=== PATIENT | male | born 1975 | race Caucasian/White ===

== ENCOUNTER 2022-07-27 05:57 | Inpatient (IN) | payer OTHER ==
[~2022-07-27] VITALS: Ht 180.3 cm; Wt 100.0 kg
[2022-07-27] MEDS ORDERED: HTN MED PO (06:30)
[2022-07-27] MEDS ORDERED: SODIUM CHLORIDE 0.9% 1,000 ML IV ONE ×2 (06:45→13:00)
[2022-07-27 07:01] LABS: BASOPHILS % (AUTO) 0.9 % (0.0-2.0); EOSINOPHILS % (AUTO) 3.3 % (1.0-6.0); HEMATOCRIT 42.6 % (41-53); HEMOGLOBIN 14.3 g/dL (13.5-17.5); LYMPHOCYTES # (AUTO) 2.5 K/uL (1.0-4.8); LYMPHOCYTES % (AUTO) 23.8 % (22.0-44.0); MEAN CORPUSCULAR HEMOGLOBIN 28.8 pg (26.0-34.0); MEAN CORPUSCULAR HGB CONC 33.5 G/dL (31.0-37.0); MEAN CORPUSCULAR VOLUME 86 fL (80-100); MONOCYTES # (AUTO) 0.7 K/uL (0.1-1.0); MONOCYTES % (AUTO) 6.9 % (2.0-9.0); NEUTROPHILS # (AUTO) 6.9 K/uL (1.8-7.7); NEUTROPHILS % (AUTO) 65.1 % (40.0-70.0); PLATELET COUNT (AUTO) 448 K/uL (150-450); RED BLOOD CELL COUNT(AUTO) 4.96 MIL/uL (4.50-5.90); RED CELL DISTRIBUTION WIDTH 14.5 % (11.5-14.5)
[2022-07-27 07:11] LABS: ANION GAP 9 mmol/L (8-16); CARBON DIOXIDE 26 mmol/L (22-29); CHLORIDE 103 mmol/L (98-107); CREATININE 0.92 mg/dL (0.60-1.30); GLOMERULAR FILTR. RATE CALC > 60 mL/min (>60); GLUCOSE,RANDOM 134 mg/dL (70-110); POTASSIUM 3.6 mmol/L (3.5-5.1); SODIUM SERUM 138 mmol/L (136-145)
[2022-07-27 07:17] LABS: ALANINE AMINOTRANSFERASE 20 U/L (12-78); ALBUMIN 3.8 g/dL (3.4-5.0); ALKALINE PHOSPHATASE 97 U/L (46-116); ASPARTATE AMINOTRANSFERASE 15 U/L (15-37); BILIRUBIN,TOTAL 0.3 mg/dL (0.1-1.0); TOTAL PROTEIN, SERUM 7.7 g/dL (6.4-8.2)
[2022-07-27] MEDS ORDERED: LORazepam 2 MG/ML VIAL IVP PRN (13:00)
[2022-07-27] MEDS ORDERED: LOPERAMIDE HCL 2 MG CAPSULE PO PRN (13:00)
[2022-07-27] MEDS: AmLODIPine BESYLATE 5 MG TABLET PO SCH (13:10)
[2022-07-27 19:34] LABS: AMPHET/METH SCREEN,URINE POSITIVE (NEGATIVE); BARBITURATE SCREEN, URINE NEGATIVE (NEGATIVE); BENZODIAZEPINES SCREEN,URINE NEGATIVE (NEGATIVE); CANNABINOID SCREEN,URINE POSITIVE (NEGATIVE); COCAINE SCREEN,URINE NEGATIVE (NEGATIVE); METHADONE SCREEN, URINE NEGATIVE (NEGATIVE); OPIATE SCREEN,URINE NEGATIVE (NEGATIVE); PHENCYCLIDINE SCREEN,URINE NEGATIVE (NEGATIVE)
[2022-07-27] MEDS: TEMAZEPAM 15 MG CAPSULE PO SCH (21:06)
[2022-07-27] MEDS: ACETAMINOPHEN/CODEINE 300-15 MG TABLET PO PRN (21:27)
[2022-07-27] MEDS: DICYCLOMINE HCL 10 MG CAPSULE PO PRN (21:28)
[2022-07-27] MEDS: METOCLOPRAMIDE HCL 5 MG/ML 2 ML VIAL IVP PRN (21:29)
[2022-07-28] MEDS ORDERED: AmLODIPine BESYLATE 10 MG TABLET PO ONE (00:30)
[2022-07-28] MEDS ORDERED: ENALAPRILAT DIHYDRATE 2.5 MG/2 ML VIAL IVP PRN ×2 (00:30→05:45)
[2022-07-28] MEDS: ACETAMINOPHEN/CODEINE 300-15 MG TABLET PO PRN ×2 (05:46→22:16)
[2022-07-28] MEDS: CloNIDine HCL 0.1 MG TABLET PO PRN ×2 (06:43→20:25)
[2022-07-28] MEDS: AmLODIPine BESYLATE 5 MG TABLET PO SCH (08:28)
[2022-07-28] MEDS: DICYCLOMINE HCL 10 MG CAPSULE PO PRN ×3 (08:40→16:39)
[2022-07-28 10:12] VITALS: BP 149/84
[2022-07-28 12:11] LABS: ANION GAP 14 mmol/L (8-16); BASOPHILS % (AUTO) 0.3 % (0.0-2.0); CALCIUM, TOTAL 9.9 mg/dL (8.8-10.5); CARBON DIOXIDE 26 mmol/L (22-29); CHLORIDE 99 mmol/L (98-107); CREATININE 1.02 mg/dL (0.60-1.30); EOSINOPHILS % (AUTO) 0.1 % (1.0-6.0); GLOMERULAR FILTR. RATE CALC > 60 mL/min (>60); GLUCOSE,RANDOM 149 mg/dL (70-110); HEMATOCRIT 47.3 % (41-53); HEMOGLOBIN 15.9 g/dL (13.5-17.5); LYMPHOCYTES # (AUTO) 1.7 K/uL (1.0-4.8); LYMPHOCYTES % (AUTO) 13.8 % (22.0-44.0); MEAN CORPUSCULAR HEMOGLOBIN 28.4 pg (26.0-34.0); MEAN CORPUSCULAR HGB CONC 33.6 G/dL (31.0-37.0); MEAN CORPUSCULAR VOLUME 84 fL (80-100); MONOCYTES # (AUTO) 0.6 K/uL (0.1-1.0); MONOCYTES % (AUTO) 5.2 % (2.0-9.0); NEUTROPHILS # (AUTO) 9.9 K/uL (1.8-7.7); NEUTROPHILS % (AUTO) 80.6 % (40.0-70.0); PLATELET COUNT (AUTO) 523 K/uL (150-450); POTASSIUM 3.6 mmol/L (3.5-5.1); RED CELL DISTRIBUTION WIDTH 14.4 % (11.5-14.5); SODIUM SERUM 139 mmol/L (136-145)
[2022-07-28 12:13] LABS: HEMOGLOBIN A1C 6.7 % (3.8-5.6)
[2022-07-28] MEDS: METOCLOPRAMIDE HCL 5 MG/ML 2 ML VIAL IVP PRN ×2 (13:56→20:03)
[2022-07-28 20:00] VITALS: BP 192/96
[2022-07-28 20:10] VITALS: BP 192/87
[2022-07-28] MEDS: TEMAZEPAM 15 MG CAPSULE PO SCH (20:25)
[2022-07-28 21:00] VITALS: BP 179/90
[2022-07-28] MEDS ORDERED: AmLODIPine BESYLATE 5 MG TABLET PO ONE (22:00)
[2022-07-29] MEDS: METOCLOPRAMIDE HCL 5 MG/ML 2 ML VIAL IVP PRN ×2 (03:44→20:15)
[2022-07-29] MEDS: DICYCLOMINE HCL 10 MG CAPSULE PO PRN ×2 (03:45→20:14)
[2022-07-29] MEDS: CloNIDine HCL 0.1 MG TABLET PO PRN ×2 (03:54→08:33)
[2022-07-29 03:58] VITALS: BP_SYST 170; BP_SYST 171; BP_DIAS 109
[2022-07-29 04:18] VITALS: BP 171/104
[2022-07-29 05:52] VITALS: BP 147/89
[2022-07-29 07:49] VITALS: BP 156/95
[2022-07-29] MEDS: AmLODIPine BESYLATE 5 MG TABLET PO SCH (08:33)
[2022-07-29 14:44] LABS: BASOPHILS % (AUTO) 0.4 % (0.0-2.0); EOSINOPHILS % (AUTO) 0.5 % (1.0-6.0); HEMATOCRIT 44.3 % (41-53); HEMOGLOBIN 14.8 g/dL (13.5-17.5); LYMPHOCYTES # (AUTO) 3.2 K/uL (1.0-4.8); LYMPHOCYTES % (AUTO) 20.3 % (22.0-44.0); MEAN CORPUSCULAR HEMOGLOBIN 28.3 pg (26.0-34.0); MEAN CORPUSCULAR HGB CONC 33.3 G/dL (31.0-37.0); MEAN CORPUSCULAR VOLUME 85 fL (80-100); MONOCYTES # (AUTO) 1.8 K/uL (0.1-1.0); MONOCYTES % (AUTO) 11.1 % (2.0-9.0); NEUTROPHILS # (AUTO) 10.7 K/uL (1.8-7.7); NEUTROPHILS % (AUTO) 67.7 % (40.0-70.0); PLATELET COUNT (AUTO) 490 K/uL (150-450); RED BLOOD CELL COUNT(AUTO) 5.22 MIL/uL (4.50-5.90); RED CELL DISTRIBUTION WIDTH 14.7 % (11.5-14.5)
[2022-07-29 14:53] LABS: CALCIUM, TOTAL 9.4 mg/dL (8.8-10.5); CREATININE 1.28 mg/dL (0.60-1.30); POTASSIUM 3.1 mmol/L (3.5-5.1)
[2022-07-29 14:59] LABS: ALBUMIN 3.9 g/dL (3.4-5.0); BILIRUBIN,TOTAL 0.4 mg/dL (0.1-1.0); TOTAL PROTEIN, SERUM 7.9 g/dL (6.4-8.2)
[2022-07-29] MEDS: CloNIDine HCL 0.1 MG TABLET PO SCH (16:36)
[2022-07-29 20:04] VITALS: BP 120/73
[2022-07-29] MEDS: TEMAZEPAM 15 MG CAPSULE PO SCH (20:09)
[2022-07-30] MEDS: CloNIDine HCL 0.1 MG TABLET PO SCH ×4 (00:26→23:50)
[2022-07-30 04:51] VITALS: BP 145/79
[2022-07-30 08:02] VITALS: BP 154/87
[2022-07-30] MEDS: AmLODIPine BESYLATE 5 MG TABLET PO SCH (08:28)
[2022-07-30] MEDS: METOCLOPRAMIDE HCL 5 MG/ML 2 ML VIAL IVP PRN ×3 (08:35→23:53)
[2022-07-30 10:09] LABS: BASOPHILS % (AUTO) 0.7 % (0.0-2.0); EOSINOPHILS % (AUTO) 0.2 % (1.0-6.0); HEMATOCRIT 44.6 % (41-53); HEMOGLOBIN 14.9 g/dL (13.5-17.5); LYMPHOCYTES # (AUTO) 2.4 K/uL (1.0-4.8); LYMPHOCYTES % (AUTO) 14.8 % (22.0-44.0); MEAN CORPUSCULAR HEMOGLOBIN 28.5 pg (26.0-34.0); MEAN CORPUSCULAR HGB CONC 33.5 G/dL (31.0-37.0); MEAN CORPUSCULAR VOLUME 85 fL (80-100); MONOCYTES # (AUTO) 1.4 K/uL (0.1-1.0); MONOCYTES % (AUTO) 8.8 % (2.0-9.0); NEUTROPHILS # (AUTO) 12.3 K/uL (1.8-7.7); NEUTROPHILS % (AUTO) 75.5 % (40.0-70.0); PLATELET COUNT (AUTO) 462 K/uL (150-450); RED BLOOD CELL COUNT(AUTO) 5.25 MIL/uL (4.50-5.90)
[2022-07-30 10:14] LABS: ANION GAP 11 mmol/L (8-16); CARBON DIOXIDE 26 mmol/L (22-29); CHLORIDE 99 mmol/L (98-107); CREATININE 1.09 mg/dL (0.60-1.30); GLOMERULAR FILTR. RATE CALC > 60 mL/min (>60); GLUCOSE,RANDOM 193 mg/dL (70-110); POTASSIUM 3.1 mmol/L (3.5-5.1); SODIUM SERUM 136 mmol/L (136-145)
[2022-07-30 10:21] LABS: ALANINE AMINOTRANSFERASE 19 U/L (12-78); ALBUMIN 3.6 g/dL (3.4-5.0); ALKALINE PHOSPHATASE 92 U/L (46-116); ASPARTATE AMINOTRANSFERASE 12 U/L (15-37); BILIRUBIN,TOTAL 0.3 mg/dL (0.1-1.0); TOTAL PROTEIN, SERUM 7.6 g/dL (6.4-8.2)
[2022-07-30] MEDS ORDERED: POTASSIUM CHLORIDE 20 MEQ ER TABLET PO ONE (10:45)
[2022-07-30] MEDS ORDERED: CloNIDine 0.3 MG/24 HOUR PATCH TD ONE (11:00)
[2022-07-30] MEDS ORDERED: DEXTROSE 50%-WATER 25 GM/50 ML SYRINGE IVP PRN (11:00)
[2022-07-30 13:19] LABS: APPEARANCE,URINE CLEAR (CLEAR); BILIRUBIN,URINE NEGATIVE (NEGATIVE); GLUCOSE, URINE (UA) 70-100 mg/dL (NEGATIVE); KETONES,URINE NEGATIVE (NEGATIVE); LEUKOCYTE ESTERASE ,URINE NEGATIVE (NEGATIVE); NITRATE,URINE NEGATIVE (NEGATIVE); OCCULT BLOOD,URINE NEGATIVE (NEGATIVE); PROTEIN,URINE TRACE mg/dL (NEGATIVE); UROBILINOGEN,URINE <=1.0 mg/dL (<=1.0)
[2022-07-30 13:24] LABS: BACTERIA,URINE None Seen /HPF (None Seen); RBC,URINE None Seen /HPF (0-2); SQUAMOUS EPITHELIAL CELL,UR Few /LPF (None Seen); WBC,URINE None Seen /HPF (0-5)
[2022-07-30] MEDS ORDERED: IOHEXOL 350 MG/ML 100 ML VIAL ONE (15:44)
[2022-07-30] MEDS ORDERED: SODIUM CHLORIDE 0.9% 100 ML ONE (15:44)
[2022-07-30 17:46] LABS: GLUCOMETER DEV NAME(LOC) 6S.2; GLUCOSE,POINT OF CARE 119 MG/DL (70-110)
[2022-07-30] MEDS: INSULIN LISPRO 100 UNITS/ML SQ PRN ×2 (18:48→20:23)
[2022-07-30 19:54] VITALS: BP 147/77
[2022-07-30] MEDS: TEMAZEPAM 15 MG CAPSULE PO SCH (20:20)
[2022-07-31 04:44] VITALS: BP 134/86
[2022-07-31 05:46] LABS: GLUCOMETER DEV NAME(LOC) 6S.2; GLUCOSE,POINT OF CARE 155 MG/DL (70-110)
[2022-07-31 05:46] LABS: GLUCOMETER DEV NAME(LOC) 6S.2; GLUCOSE,POINT OF CARE 255 MG/DL (70-110)
[2022-07-31] MEDS: INSULIN LISPRO 100 UNITS/ML SQ PRN ×3 (05:46→20:18)
[2022-07-31 07:33] VITALS: BP 156/89
[2022-07-31] MEDS: CloNIDine HCL 0.1 MG TABLET PO SCH (08:11)
[2022-07-31] MEDS: AmLODIPine BESYLATE 5 MG TABLET PO SCH (08:12)
[2022-07-31] MEDS: METOCLOPRAMIDE HCL 5 MG/ML 2 ML VIAL IVP PRN (08:14)
[2022-07-31 11:26] LABS: GLUCOMETER DEV NAME(LOC) 4E.2; GLUCOSE,POINT OF CARE 141 MG/DL (70-110)
[2022-07-31] MEDS ORDERED: NIFEdipine 30 MG ER TABLET PO ONE (12:00)
[2022-07-31] MEDS: SODIUM CHLORIDE 0.45% 1,000 ML IV SCH (12:34)
[2022-07-31] MEDS: HydrOXYzine HCL 50 MG TABLET PO PRN ×2 (12:34→18:22)
[2022-07-31 12:42] LABS: BASOPHILS % (AUTO) 1.2 % (0.0-2.0); EOSINOPHILS % (AUTO) 1.3 % (1.0-6.0); HEMATOCRIT 42.6 % (41-53); LYMPHOCYTES # (AUTO) 3.1 K/uL (1.0-4.8); LYMPHOCYTES % (AUTO) 26.4 % (22.0-44.0); MEAN CORPUSCULAR HEMOGLOBIN 28.3 pg (26.0-34.0); MEAN CORPUSCULAR HGB CONC 32.8 G/dL (31.0-37.0); MEAN CORPUSCULAR VOLUME 86 fL (80-100); MONOCYTES # (AUTO) 1.2 K/uL (0.1-1.0); MONOCYTES % (AUTO) 10.1 % (2.0-9.0); NEUTROPHILS # (AUTO) 7.2 K/uL (1.8-7.7); PLATELET COUNT (AUTO) 401 K/uL (150-450); RED BLOOD CELL COUNT(AUTO) 4.95 MIL/uL (4.50-5.90); RED CELL DISTRIBUTION WIDTH 15.2 % (11.5-14.5)
[2022-07-31 12:49] LABS: ANION GAP 7 mmol/L (8-16); CALCIUM, TOTAL 8.6 mg/dL (8.8-10.5); CARBON DIOXIDE 27 mmol/L (22-29); CHLORIDE 104 mmol/L (98-107); CREATININE 1.01 mg/dL (0.60-1.30); GLOMERULAR FILTR. RATE CALC > 60 mL/min (>60); GLUCOSE,RANDOM 152 mg/dL (70-110); POTASSIUM 3.8 mmol/L (3.5-5.1); SODIUM SERUM 138 mmol/L (136-145)
[2022-07-31 12:55] LABS: ALBUMIN 3.3 g/dL (3.4-5.0); ALKALINE PHOSPHATASE 93 U/L (46-116); ASPARTATE AMINOTRANSFERASE 13 U/L (15-37); BILIRUBIN,TOTAL 0.3 mg/dL (0.1-1.0); TOTAL PROTEIN, SERUM 6.9 g/dL (6.4-8.2)
[2022-07-31 12:59] LABS: ALANINE AMINOTRANSFERASE 4 U/L (12-78)
[2022-07-31 16:23] VITALS: BP 144/87
[2022-07-31] MEDS: ONDANSETRON HCL 4 MG/2 ML VIAL IVP PRN ×2 (16:26→21:08)
[2022-07-31 19:38] VITALS: BP 100/63
[2022-07-31 20:06] LABS: GLUCOMETER DEV NAME(LOC) 6S.1B; GLUCOSE,POINT OF CARE 116 MG/DL (70-110)
[2022-07-31 20:06] LABS: GLUCOMETER DEV NAME(LOC) 6S.1B; GLUCOSE,POINT OF CARE 112 MG/DL (70-110)
[2022-07-31 20:06] LABS: GLUCOMETER DEV NAME(LOC) 6N.1; GLUCOSE,POINT OF CARE 160 MG/DL (70-110)
[2022-07-31] MEDS: PANTOPRAZOLE SODIUM 40 MG DR TABLET PO SCH (20:14)
[2022-07-31] MEDS: TEMAZEPAM 15 MG CAPSULE PO SCH (20:14)
[2022-08-01] MEDS: SODIUM CHLORIDE 0.45% 1,000 ML IV SCH ×2 (01:13→14:40)
[2022-08-01] MEDS: ONDANSETRON HCL 4 MG/2 ML VIAL IVP PRN ×3 (01:17→11:21)
[2022-08-01] MEDS: HydrOXYzine HCL 50 MG TABLET PO PRN ×3 (03:07→22:05)
[2022-08-01 04:40] VITALS: BP 167/96
[2022-08-01 05:01] LABS: GLUCOMETER DEV NAME(LOC) 6S.2; GLUCOSE,POINT OF CARE 213 MG/DL (70-110)
[2022-08-01] MEDS: CloNIDine HCL 0.1 MG TABLET PO PRN ×2 (05:23→22:05)
[2022-08-01] MEDS: ACETAMINOPHEN/CODEINE 300-15 MG TABLET PO PRN ×2 (05:23→11:21)
[2022-08-01 07:32] LABS: GLUCOMETER DEV NAME(LOC) 6N.1; GLUCOSE,POINT OF CARE 119 MG/DL (70-110)
[2022-08-01 07:50] VITALS: BP 156/88
[2022-08-01] MEDS ORDERED: NIFEdipine 30 MG ER TABLET PO SCH (09:00)
[2022-08-01] MEDS: PANTOPRAZOLE SODIUM 40 MG DR TABLET PO SCH ×2 (09:57→20:33)
[2022-08-01 13:07] LABS: GLUCOMETER DEV NAME(LOC) 6N.1; GLUCOSE,POINT OF CARE 121 MG/DL (70-110)
[2022-08-01 16:29] VITALS: BP 142/81
[2022-08-01 19:45] VITALS: BP 133/65
[2022-08-01] MEDS: TEMAZEPAM 15 MG CAPSULE PO SCH (20:32)
[2022-08-01] MEDS: INSULIN LISPRO 100 UNITS/ML SQ PRN (20:44)
[2022-08-01 21:16] LABS: GLUCOMETER DEV NAME(LOC) 6S.2; GLUCOSE,POINT OF CARE 93 MG/DL (70-110)
[2022-08-01 21:16] LABS: GLUCOMETER DEV NAME(LOC) 6S.2; GLUCOSE,POINT OF CARE 180 MG/DL (70-110)
[2022-08-02 05:36] VITALS: BP 147/76
[2022-08-02] MEDS: PANTOPRAZOLE SODIUM 40 MG DR TABLET PO SCH (07:51)
[2022-08-02] MEDS ORDERED: MetFORMIN HCL 500 MG ER TABLET PO SCH (08:00)
[2022-08-02 08:22] VITALS: BP 175/88
[2022-08-02] MEDS ORDERED: NIFEdipine 60 MG ER TABLET PO SCH (09:00)
[2022-08-02 09:12] VITALS: BP 148/86
[2022-08-02] MEDS ORDERED: CLON1PAT14 TD (10:38)
[2022-08-02] MEDS ORDERED: PANT-31 PO (10:39)
[2022-08-02] MEDS ORDERED: NIFE-129 PO (10:39)
[2022-08-02] MEDS ORDERED: METF-1211 PO (10:40)
[2022-08-02] MEDS: CloNIDine HCL 0.1 MG TABLET PO PRN (11:11)
[2022-08-02 13:31] LABS: GLUCOMETER DEV NAME(LOC) 6N.1; GLUCOSE,POINT OF CARE 87 MG/DL (70-110)
[2022-08-02 17:51] LABS: GLUCOMETER DEV NAME(LOC) 4E.2; GLUCOSE,POINT OF CARE 117 MG/DL (70-110)
[2022-08-03] MEDS ORDERED: NIFEdipine 90 MG ER TABLET PO SCH (09:00)
[2022-08-06] MEDS ORDERED: CloNIDine 0.3 MG/24 HOUR PATCH TD SCH (09:00)
== END 2022-08-02 14:41 | DRG 897 ==
LOC: EMS 05:57 → 6S 07-28 05:00
PROVIDERS: ADMIT Internal Medicine; ATTEND Internal Medicine
PROC: 05HB33Z Insertion of Infusion Device into Right Basilic Vein, Percutaneous Approach (ICD-10-PCS; principal; 2022-07-28)
DX: F11.13 Opioid abuse with withdrawal (principal); R73.9 Hyperglycemia, unspecified; I10 Essential (primary) hypertension; F17.210 Nicotine dependence, cigarettes, uncomplicated; E66.9 Obesity, unspecified; D72.829 Elevated white blood cell count, unspecified; Z68.30 Body mass index [BMI] 30.0-30.9, adult; Z82.49 Family history of ischemic heart disease and other diseases of the circulatory system
CPT/HCPCS: 36245; 36569; 71045; 74177; 76937; 80048; 80053; 80307; 81001; 82962; 83036; 85025; 87040; 93005; 99285; J2060; J2405; J2765; J3490; J7030; J7050; Q9967; 36415-L1; 36415-TC